=== PATIENT | female | born 1995 | race Hispanic/Latino ===

== ENCOUNTER 2019-02-14 08:22 | Emergency (ER) | payer BC ==
[~2019-02-14] VITALS: Ht 144.8 cm; Wt 68.0 kg
--- OUTSIDE RECORDS SUMMARY | 2019-02-14 08:26 | XMS REPORT ---
Author Author [facility] Address Unknown Phone Unavailable Care Team Providers Care Lan Administrator Name Role Phone JORDY DOMINGO MD, Marylu RAIN Unavailable Unavailable Problems This patient has no known problems. Allergies, Adverse Reactions, Alerts This patient has no known allergies or adverse reactions. Medications This patient has no known medications. Encounters Start Date/Time End Date/Time Encounter Type Admission Type Attending Clinicians Care Facility Care Department Encounter ID 2017-05-30 06:29:00 2017-05-30 23:59:00 Outpatient C JORDY DOMINGO MD, [facility] [place] [facility] [id number]
--- OUTSIDE RECORDS SUMMARY | 2019-02-14 08:26 | XMS REPORT | Encounter Summary ---
Author Organization Unknown Address [address] [place] [address] Phone [phone] Care Team Providers Care Line Up Worker Name Role Phone Dr. Raulito Ortiz 3 [phone] Reason for Visit anxiety Instructions 1. Mixed anxiety and depressive disorder venlafaxine ER 75 mg tablet,extended release 24 hr 2. Body mass index 30+ - obesity body mass index: care instructions learning about healthy weight Discussion Note: None recorded. Plan of Care Reminders Provider Appointments Est Patient 08/14/2018 4:15PM Raulito Gilbert MD Lab None recorded. Referral None recorded. Procedures None recorded. Surgeries None recorded. Imaging None recorded. Medications Name Start Date venlafaxine ER 75 mg tablet,extended release 24 hr Take 1 tablet every day by oral route as directed for 90 days. Medications Administered None recorded. Vitals Height Weight BMI Blood Pressure 4 ft 9 in 147 lbs 31.8 kg/m2 120/70 mm[Hg] Lab Results Date Name Specimen Result Interpretation Description Value Range Status Address 05/23/2018 CBC W/ Auto Diff High Wbc 10.74 x10*3/L 3.98-10.04 x10*3/L Final [facility] Laboratory: [address] Rbc 4.90 10*12/L 3.93-5.22 10*12/L Final [facility] Laboratory: [address] Hemoglobin 14.20 g/dL 11.20-15.70 g/dL Final [facility] Laboratory: [address] Hematocrit 41.7 % 34.1-44.9 % Final [facility] Laboratory: [address] Mcv 85.1 fL 80.0-100.0 fL Final [facility] Laboratory: [address] Mch 29.0 pg 25.6-32.2 pg Final [facility] Laboratory: [address] [place] Mchc 34.1 g/dL 32.2-35.5 g/dL Final [facility] Laboratory: [address] [place] RDW-SD 36.7 fL 36.4-46.3 fL Final [facility] Laboratory: [address] [place] Platelet Count 308.0 k/uL 182.0-369.0 k/uL Final [facility] Laboratory: [address] [place] High Mpv 13.4 fL 7.5-11.5 fL Final [facility] [address] [facility] [facility] Neut% 65.3 % 34.0-71.1 % Final [facility] [address] [facility] [facility] Lymph% 23.5 % 19.3-51.7 % Final [facility] [address] [facility] Mon% 7.6 % 4.7-12.5 % Final [facility] [address] [facility] Eos% 3.4 % 0.7-5.8 % Final [facility] [address] [facility] Baso% 0.2 % 0.1-1.2 % Final [facility] Laboratory: [address] [place] High Neut# 7.0 x10*3/L 1.6-6.1 x10*3/L Final [facility] [address] [facility] [facility] Lymph# 2.5 x10*3/L 1.2-3.7 x10*3/L Final [facility] [address] [facility] Mon# 0.8 x10*3/L 0.2-0.9 x10*3/L Final [facility] Laboratory: [address] [place] High Eos# 0.37 x10*3/L 0.04-0.36 x10*3/L Final [facility] [address] [facility] Baso# 0.02 x10*3/L 0.01-0.08 x10*3/L Final [facility] [address] [facility] [facility] 05/23/2018 CMP, Serum or Plasma Alt 20 U/L 0-55 U/L Final [facility] Laboratory: [address] [place] [address], [place] Ast 19 U/L 5-34 U/L Final [facility] Laboratory: [address], [place] Bun 13.5 mg/dL 7.0-18.7 mg/dL Final [facility] Laboratory: [address] [place] [address], [place] Alk Phos 82 unit/L 40-150 unit/L Final [facility] Laboratory: [address], [place] Glucose 83 mg/dL 70-99 mg/dL Final [facility] Laboratory: [address] [place] [address], [place] Albumin 4.2 g/dL 3.5-5.0 g/dL Final [facility] Laboratory: [address] [place] [address], [place] Creatinine 0.64 mg/dL 0.57-1.11 mg/dL Final [facility] Laboratory: [address] eGFR Non- >60 mL/min/1.73m2 Final [facility] Laboratory: [address] Total Bilirubin 0.4 mg/dL 0.2-1.2 mg/dL Final [facility] Laboratory: [address] eGFR - >60 mL/min/1.73m2 Final [facility] Laboratory: [address], [place] Sodium 139 mEq/L 136-145 mEq/L Final [facility] Laboratory: [address] Potassium 4.5 mEq/L 3.5-5.1 mEq/L Final [facility] Laboratory: [address] [place] [address], [place] Chloride 106 mmol/L 98-107 mmol/L Final [facility] Laboratory: [address] [place] [address], [place] Total Protein 7.3 g/dL 6.4-8.3 g/dL Final [facility] Laboratory: [address], [place] Calcium 9.4 mg/dL 8.4-10.2 mg/dL Final [facility] Laboratory: [address], [place] Co2 23.6 mmol/L 22.0-29.0 mmol/L Final [facility] Laboratory: [address] [place] [address], [place] Anion Gap 9 calc Final [facility] Laboratory: [address] [place] [address], [place] 05/23/2018 TSH, Serum or Plasma Tsh 1.423 uIU/mL 0.350-4.940 uIU/mL Final [facility] Laboratory: [address] [place] [address], [place] 05/23/2018 HbA1C (Hemoglobin a1C), Blood A1C W/eag 5.2 % 1.0-5.7 % Final [facility] Laboratory: [address] Average Blood Glucose 103 mg/dL Final [facility] Laboratory: [address] Allergies Code Code System Name Reaction Severity Status Onset NKDA Problems No Known Problems Procedures None recorded. Vaccine List Vaccine Type influenza, unspecified formulation 01/29/2017 Tdap 05/23/20180.5 mL Social History Smoking Status Current Every Day Smoker Past Encounters 06/13/2018 Mixed Anxiety and Depressive Disorder; Body Mass Index 30+ - Obesity Raulito Gilbert MD: [address] [place] [address], Ph. 05/23/2018 Mixed Anxiety and Depressive Disorder; Abnormal Weight Gain; Body Mass Index 30+ - Obesity; Immunization Raulito Gilbert MD: [address] [place] [address], Ph. History of Present Illness Note:F/u on anxiety/depression. Feeling better. Anxiety has decreased progressively. Mood is better (feels happier). Attention span has increased. Denies suicidal/homicidal thoughts. No side effects with the medication. No new concerns. Review of Systems Comprehensive General Adult ROS Reported By: Patient Constitutional: Constitutional: no fever Eyes: Eyes: no vision change Cardiovascular: Cardiovascular: no chest pain, no palpitations, no lightheadedness Respiratory: Respiratory: no cough, no wheezing, no shortness of breath Gastrointestinal: Gastrointestinal: no abdominal pain, no nausea, no vomiting, no constipation, no diarrhea Musculoskeletal: Musculoskeletal: no muscle aches, no swelling in the extremities Neurologic: Neurologic: no loss of consciousness, no headaches Psychiatric: Psych: no sleep disturbances, no alcohol abuse, no hallucinations, no suicidal thoughts, depression, anxiety Endocrine: Endocrine: fatigue Physical Exam General Adult Exam (male) Reported By: Patient Constitutional: General Appearance: healthy-appearing, overweight. Level of Distress: NAD. Ambulation: ambulating normally Psychiatric: Insight: good judgement. Mental Status: active and alert, normal mood, normal affect. Orientation: to time, to place, to person Head: Head: normocephalic, atraumatic Eyes: Lids and Conjunctivae: non-injected, no discharge. EOM: EOMI ENMT: Ears: TMs clear. Nose: nares patent. Oropharynx: moist mucous membranes Neck: Neck: supple, trachea midline Lungs: Respiratory effort: no dyspnea. Auscultation: breath sounds normal, good air movement Cardiovascular: Heart Auscultation: RRR, normal S1, normal S2, no murmurs Musculoskeletal:: Motor Strength and Tone: normal, normal tone. Joints, Bones, and Muscles: normal movement of all extremities, no contractures, no bony abnormalities, no malalignment, no tenderness. Extremities: no edema Neurologic: Gait and Station: normal gait. Cranial Nerves: grossly intact. Coordination and Cerebellum: no tremor
--- OUTSIDE RECORDS SUMMARY | 2019-02-14 08:26 | XMS REPORT | Encounter Summary ---
Author Organization Unknown Address [address] [place] [id number] Phone [phone] Care Team Providers Care Communications Advisor Name Role Phone Dr. Raulito Ortiz 3 [phone] Reason for Visit weight gain; depression Instructions 1. Mixed anxiety and depressive disorder venlafaxine ER 75 mg tablet,extended release 24 hr 2. Abnormal weight gain HbA1c (hemoglobin A1c), blood TSH, serum or plasma CBC w/ auto diff CMP, serum or plasma 3. Body mass index 30+ - obesity body mass index: care instructions learning about healthy weight 4. Immunization Adacel (Tdap Adolesn/Adult)(PF)2 Lf-(2.5-5-3-5)-5 Lf/0.5 mL IM syringe Discussion Note: None recorded. Plan of Care Reminders Provider Appointments Est Patient 06/13/2018 4:15PM Raulito Gilbert MD Lab HbA1C (Hemoglobin a1C), Blood 05/23/2018 [facility] Laboratory TSH, Serum or Plasma 05/23/2018 [facility] Laboratory CBC W/ Auto Diff 05/23/2018 [facility] Laboratory CMP, Serum or Plasma 05/23/2018 [facility] Laboratory Referral None recorded. Procedures None recorded. Surgeries None recorded. Imaging None recorded. Medications Name Start Date venlafaxine ER 75 mg tablet,extended release 24 hr Take 1 tablet every day by oral route as directed for 30 days. Medications Administered None recorded. Vitals Height Weight BMI Blood Pressure 4 ft 9 in 150 lbs 32.5 kg/m2 110/76 mm[Hg] Lab Results None recorded. Allergies Code Code System Name Reaction Severity Status Onset NKDA Problems No Known Problems Procedures None recorded. Vaccine List Vaccine Type influenza, unspecified formulation 01/29/2017 Tdap 05/23/20180.5 mL Social History Smoking Status Current Every Day Smoker Past Encounters 05/23/2018 Mixed Anxiety and Depressive Disorder; Abnormal Weight Gain; Body Mass Index 30+ - Obesity; Immunization Raulito Gilbert MD: [address] [place] [address], Ph. History of Present Illness Note:Complaining of weight gain since 4 months ago (13 lbs). She took phentermine for 2 months from [place], but it didn't work. Concomitantly, feeling fatigued, anxious, sad and having difficulty concentrating. Denies suicidal/homicidal thoughts. Pt never came back for a f/u because she didn't have insurance. She didn't notice any improvement in the symptoms with the wellbutrin in the past. Review of Systems Comprehensive General Adult ROS [...]
[2019-02-14 09:18] LABS: STREPTOCOCCUS GRP A ANTIGEN NEGATIVE (NEGATIVE)
[2019-02-14 09:19] LABS: INFLUENZAE A&B ANTIGEN (RAPID) NEGATIVE (NEGATIVE)
--- NOTE | 2019-02-14 09:58 | Diagnostic Imaging Report ---
EXAMINATION: CHEST 2 VIEWS INDICATION: Chest pain COMPARISON: None FINDINGS: LINES/TUBES:None LUNGS:The lungs are well-inflated. No focal consolidation or pulmonary edema. PLEURA:No pleural effusion or pneumothorax. MEDIASTINUM:The cardiomediastinal silhouette appears normal in size and shape. BONES/SOFT TISSUES:No acute osseous injury. ABDOMEN:No free air under the diaphragm. IMPRESSION: No focal pneumonia or pulmonary edema. Signed by: Crystal Ledezma MD on 02/14/2019 9:55 AM
--- NOTE | 2019-02-14 09:59 | NUR ---
pt's mom arrived, upset over being asked for payment; wanting to leave and go to another hospital. states he will speak with pt and mom and d/c;
[2019-02-14] MEDS ORDERED: AZITHROMYCIN 250 MG TAB PO ONE (10:00)
[2019-02-14 10:13] LABS: BILIRUBIN,URINE NEGATIVE (NEGATIVE); CLARITY,URINE CLEAR (CLEAR); COLOR,URINE YELLOW (YELLOW); KETONES,URINE 1+ (NEGATIVE); LEUKOCYTE ESTERASE ,URINE NEGATIVE (NEGATIVE); NITRITE,URINE NEGATIVE (NEGATIVE); PROTEIN,URINE DIPSTICK TRACE (NEGATIVE); URINE UROBILINOGEN 0.2 mg/dL (0.2 - 1)
[2019-02-14 10:29] LABS: BACTERIA,URINE RARE /HPF; EPITHELIAL CELLS,URINE FEW /LPF
[2019-02-14 11:45] LABS: PREGNANCY TEST, URINE NEGATIVE (NEGATIVE)
== END 2019-02-14 10:01 | disposition home or self-care (01) ==
LOC: ER 08:22
DX: R50.9 Fever, unspecified (principal); R05 Cough; J20.9 Acute bronchitis, unspecified
CPT/HCPCS: 71046; 81001; 81025; 83518; 87070; 87086; 87400; 99283